=== PATIENT | male | born 1990 | race Caucasian/White ===

== ENCOUNTER 2019-12-06 09:42 | Emergency (ER) | payer OTHER ==
[~2019-12-06] VITALS: Ht 154.9 cm; Wt 49.9 kg
--- NOTE | 2019-12-06 09:45 | NUR ---
PT AMBULATED INTO ER WITH EMS ON THE PHONE WITH 911 DISPATCH STATING HE WANTED AN OFFICER TO BE HERE BEFORE HE WAS SEEN. PT UNCOOPERATIVE AND PACING AROUND ER. PT REFUSING CARE AND REQUESTING PD.
[2019-12-06] MEDS ORDERED: LORazepam 1 MG TAB PO ONE (09:50)
[2019-12-06] MEDS ORDERED: LORazepam 2 MG/ML VIAL ONE (09:51)
--- NOTE | 2019-12-06 10:00 | NUR ---
PT NOW IN [place] [employer] CUSTODY FOR PREBOOK. PT IS BEING COMBATIVE AND AGGRESSIVE. ATTEMPTED TO DE-ESCALATE SITUATION VERBALLY. PT REMAINED UNCOOPERATIVE. ERMD AWARE.
[2019-12-06 10:12] VITALS: BP 239/113
[2019-12-06] MEDS ORDERED: LORazepam 2 MG/ML VIAL IM ONE (10:15)
[2019-12-06] MEDS ORDERED: NACL 0.9% 2,000 ML IV ONE (10:15)
--- NOTE | 2019-12-06 10:15 | NUR ---
Arik jones in [facility] - 12/06/19 at 1108 by [facility] [place] [employer] WITH PT
--- NOTE | 2019-12-06 10:19 | NUR ---
PATIENT AMBULATED WITH [employer] ASSISTANCE TO BE 4.
--- NOTE | 2019-12-06 10:30 | NUR ---
[place] [employer] AT BEDSIDE WITH PT. PT REMAINS AGGRAVATED AND UNCOOPERATIVE.
--- NOTE | 2019-12-06 10:30 | NUR ---
LADONNA Hodges C/O ALOC. PT INITIALLY WAS REFUSING CARE AND WALKED IN FROM AMBULANCE ON THE PHONE WITH 911. PT DISPLAYED PARANOID LIKE BEHAVIOR STATING HE DID NOT FEEL SAFE AND HE NEEDED THE POLICE BUT WOULD NOT FURTHER EXPLAIN WHY. [facility] WAS CALLED. PT PACING AROUND. UNABLE TO GET VITAL SIGNS OR FURTHER HISTORY
[2019-12-06] MEDS ORDERED: HALOPERIDOL IM 5 MG/ML VIAL IM ONE ×2 (10:40→10:45)
[2019-12-06] MEDS ORDERED: HALOPERIDOL IM 5 MG/ML VIAL ONE (10:41)
--- NOTE | 2019-12-06 11:22 | NUR ---
PT RELAXED IN BED AND NOW COOPERATIVE. [facility] [employer] CITE & RELEASED
--- NOTE | 2019-12-06 12:01 | NUR ---
REPORT RECEIVED FROM CONCEPCION JENKINS. RESUME CARE AT THIS TIME.
--- NOTE | 2019-12-06 12:02 | NUR ---
Patient discharged with v/s stable. Written and verbal after care instructions given and explained. Patient verbalized understanding. Ambulatory with steady gait. All questions addressed prior to discharge. Advised to follow up with PMD. PROVIDED PT WITH LUNCH. PT STATES HE IS NOT HOMELESS AND DOES NOT NEED RESOURCES PROVIDED TO HIM.
[2019-12-06 12:03] VITALS: BP 129/67
== END 2019-12-06 12:02 | disposition home or self-care (01) ==
LOC: MED 09:42
DX: R45.1 Restlessness and agitation (principal); R41.0 Disorientation, unspecified; F15.10 Other stimulant abuse, uncomplicated
CPT/HCPCS: 96360; 96361; 96372; 99291; J1630; J2060; J7030; 99284